=== PATIENT | female | born 1965 | race Caucasian/White ===

== ENCOUNTER → 2019-07-13 | Outpatient (CLI) | payer BC ==
--- NOTE | 2019-07-13 16:23 | KCIC ---
EXAM: Left foot, 3 views. HISTORY: Plantar foot pain. COMPARISON: None. FINDINGS: 3 views left foot are obtained. There is no fracture, dislocation or subluxation. There is an accessory navicular. There is also a small accessory ossicle along the lateral mid foot. There is no plantar spur. IMPRESSION: No acute osseous finding. Electronically signed by: Sil Tejeda MD (07/13/2019 4:20 PM) [id number]
== END | disposition home or self-care (01) ==
LOC: KCIC 15:47
PROVIDERS: ATTEND Nurse Practitioner Family
DX: M79.672 Pain in left foot (principal)
CPT/HCPCS: 73630

== ENCOUNTER → 2019-07-20 | Outpatient (CLI) | payer BC ==
--- NOTE | 2019-07-21 14:37 | KCIC ---
BILATERAL SCREENING MAMMOGRAM, 3-D History: Routine screening. History of breast reduction. Comparison: None. This is a baseline exam. Technique: MLO and CC digital tomosynthesis (3D) images obtained. Radiologist reviewed these images on dedicated workstation. Findings: Breast Tissue Density B : There are scattered areas of fibroglandular density. Parenchymal pattern is compatible with history of reduction mammoplasty. There is a nodular asymmetry in the lower right breast anteriorly without correlate on the CC view. There are no dominant masses, suspicious microcalcifications, or architectural distortion. IMPRESSION: Nodular asymmetry in the lower right breast. Recommend further evaluation with ultrasound. BI-RADS Category 0: Incomplete: Need additional imaging evaluation. The images were reviewed with computer-aided detection. Patient information is entered into reminder system with a target due date for the next screening mammogram. Mammography is the most sensitive method for finding small breast cancers, but it does not detect them all and is not a substitute for careful clinical examination. A negative mammogram does not negate a clinically suspicious finding and should not result in delay in biopsying a clinically suspicious abnormality. "Our facility is accredited by the [employer] Mammography Program." Electronically signed by: rTent Raymond MD (07/21/2019 2:34 PM) [id number]
== END | disposition home or self-care (01) ==
LOC: KCIC MAMMO 17:36
PROVIDERS: ATTEND Nurse Practitioner Family
DX: Z12.31 Encounter for screening mammogram for malignant neoplasm of breast (principal); N64.89 Other specified disorders of breast
CPT/HCPCS: 77063; 77067

== ENCOUNTER → 2019-09-10 | Outpatient (CLI) | payer BC ==
--- NOTE | 2019-09-10 10:16 | KCIC ---
EXAM: Abdomen sonogram. HISTORY: Bloating. TECHNIQUE: Sonographic imaging of the abdomen was performed. COMPARISON: None. FINDINGS: The liver is normal in size. There is hepatic steatosis. No focal hepatic lesion is seen. The common bile duct is normal in caliber. There is cholelithiasis. The gallbladder wall is mildly thickened, measuring 4 mm. There is a positive sonographic Ruiz's sign. The kidneys and spleen are unremarkable. There is and atherosclerotic abdominal aorta. The pancreas is obscured due to bowel gas. IMPRESSION: 1. Cholelithiasis. There is superimposed gallbladder wall thickening which may be due to contraction. However, given a positive sonographic Ruiz's sign, possibility of cholecystitis is not excluded. 2. Hepatic steatosis. 3. Obscured pancreas due to bowel gas. Electronically signed by: Sil Tejeda MD (09/10/2019 10:13 AM) [id number]
--- NOTE | 2019-09-10 14:40 | KCIC ---
Right breast ultrasound: Reason for examination: Nodular asymmetry on screening mammogram. Comparison is made to mammographic exam dated 07/21/2019. Right whole breast ultrasound including evaluation of all 4 quadrants and the retroareolar and axillary regions of the right breast was performed. In the 6:00 position 4.5 cm from the nipple, there is a small 4.3 mm hypoechoic fibrocystic type lesion present which has benign appearance but probably reflects abnormality seen mammographically. In the retroareolar 6:00 position however there appears to be an intraductal lesion posterior papilloma measuring approximately 7.8 mm in greatest dimension. Further evaluation with ultrasound-guided biopsy should be considered. No other cystic or solid nodules are seen. No abnormal appearing lymph nodes are seen in the axilla. IMPRESSION: Small 4.3 mm hypoechoic fibrocystic type lesion at the 6:00 position. Nodule consistent with a papilloma in the retroareolar 6:00 position measuring 7.8 mm in size. Recommend further evaluation with ultrasound guided biopsy. BI-RADS Category 4: Suspicious. These findings have been discussed with the patient and the patient's nurse practitioner, Mercedes Lu was notified about these findings on 09/10/2019 at 1435. "Our facility is accredited by the [employer] Mammography Program." This patient's information has been entered into a reminder system for the patient to be notified with the results of her examination and a target date for the next mammogram. Electronically signed by: Dena Esqueda MD (09/10/2019 2:37 PM) [id number]
== END | disposition home or self-care (01) ==
LOC: KCIC US 08:08
PROVIDERS: ATTEND Nurse Practitioner Family
DX: K80.20 Calculus of gallbladder without cholecystitis without obstruction (principal); K76.0 Fatty (change of) liver, not elsewhere classified; N63.13 Unspecified lump in the right breast, lower outer quadrant
CPT/HCPCS: 76641; 76700

== ENCOUNTER → 2019-10-15 | Outpatient (CLI) | payer BC ==
--- NOTE | 2019-10-15 11:55 | RAD ---
Examination: BREAST RIGHT History: Abnormal mammogram Comparison/Correlation: 09/10/2019 Limited right breast ultrasound exam, screening mammographic exam 07/20/2019 Findings: Limited right breast ultrasound was performed at 6:00 region. The nipple, there is a fluid echogenicity structure with internal echoes noted. This was described on the previous exam. No solid component identified. This is contiguous with a duct. At the 6:00 region 4.5 cm from nipple, there is a hypoechoic structure measuring up to 0.45 cm diameter which corresponds to a finding previously identified. No suspicious flow evident. Impression: BI-RADS Category 3-probably benign. Findings were discussed with the patient. The dominant lesion present indicates the ducts and appears represent focal ductal ectasia. The patient reports not having undergone mammography in many years. Six-month follow-up right unilateral mammography and ultrasound exam were preferred by the patient to assess stability rather than undergoing biopsy at this time. Biopsy as a result was not performed. Electronically signed by: Humza Clinton MD (10/15/2019 11:52 AM) [facility]
== END | disposition home or self-care (01) ==
LOC: US 07:41
PROVIDERS: ATTEND Surgery
DX: N64.89 Other specified disorders of breast (principal)
CPT/HCPCS: 76641

== ENCOUNTER → 2019-10-15 | Outpatient (CLI) | payer BC ==
[~2019-10-15] MED LIST: CONTRAST GIVEN. MC PRN; IOHEXOL 240 MG/ML 50ML VIAL. PO ONE; IOHEXOL 300 MG/ML 100ML VIAL. IV ONE
--- NOTE | 2019-10-15 14:36 | RAD ---
CT ABD PELV W/ORAL IV CONTRAST Indication: Abdominal pain and distention Technique: Postcontrast CT imaging was performed of theabdomen and pelvis, multiplanar reconstruction images submitted. Oral contrast was also given. One or more of the following individualized dose reduction techniques were utilized for this examination: 1. Automated exposure control 2. Adjustment of the mA and/or kV according to patient size 3. Use of iterative reconstruction technique. Comparison: None Findings: There is no abnormality of the limited visualized lung bases. There is probable hepatic steatosis. No focal abnormality is identified of the pancreas or spleen. Gallbladder is present, nonspecific contracted appearance. Both kidneys enhance, no hydronephrosis. There is a small hypodense lesion of the mid right kidney about 0.4 to 0.5 cm otherwise too small to accurately characterize. Bowel is not significantly dilated. There is no free fluid or free air. There is no significant inflammatory type change about the bowel. Normal appendix is visualized. There is an approximate 1.1 cm likely cyst of the left adnexa. There is very mild hazy density of the more central mesenteric fat. No significantly enlarged nodes are identified. IMPRESSION: 1. There is no significant localized type change about the bowel, no CT evidence of acute appendicitis or evidence of bowel obstruction. 2. There is very mild nonspecific hazy density of the more central mesenteric fat, could be associated with mild mesenteritis. 3. There is nonspecific contracted appearance of the gallbladder. There is likely hepatic steatosis. 4. There is small left adnexal cyst. Electronically signed by: Sam Sarah MD (10/15/2019 2:33 PM) [id number]
== END | disposition home or self-care (01) ==
LOC: CT 09:28
PROVIDERS: ATTEND Internal Medicine Gastroenterology
DX: N28.89 Other specified disorders of kidney and ureter (principal)
CPT/HCPCS: 74177; Q9966; Q9967